=== PATIENT | female | born 1965 | race Caucasian/White ===

== ENCOUNTER → 2021-05-23 | Outpatient (CLI) | payer OTHER ==
[2021-05-24 11:13] LABS: RHEUMATOID ARTHRITIS FACTOR <10.0 IU/mL (0.0-13.9)
== END ==
LOC: LAB 09:55
PROVIDERS: Nurse Practitioner Family
DX: M79.641 Pain in right hand (principal); M79.642 Pain in left hand; M54.2 Cervicalgia; G89.29 Other chronic pain; D89.9 Disorder involving the immune mechanism, unspecified; R76.8 Other specified abnormal immunological findings in serum; M79.10 Myalgia, unspecified site; Z79.899 Other long term (current) drug therapy; M47.812 Spondylosis without myelopathy or radiculopathy, cervical region; M19.042 Primary osteoarthritis, left hand; M19.041 Primary osteoarthritis, right hand
CPT/HCPCS: 36415; 72040; 73130; 82550; 83520; 85652; 86140; 86200; 86431

== ENCOUNTER → 2021-10-14 | Outpatient (CLI) | payer OTHER | LOC: MRI 10-08 13:00 | DX: G44.52 New daily persistent headache (NDPH) (principal) | CPT/HCPCS: 70544; 70553; A9577 ==

== ENCOUNTER → 2022-01-20 | Outpatient (CLI) | payer OTHER | LOC: RAD 11:18 | DX: M25.512 Pain in left shoulder (principal); M25.562 Pain in left knee | CPT/HCPCS: 73030; 73562 ==